=== PATIENT | male | born 1985 | race Caucasian/White ===

== ENCOUNTER 2017-04-18 16:17 | Emergency (ER) | payer OTHER ==
[~2017-04-18] VITALS: Ht 172.7 cm; Wt 68.2 kg
[~2017-04-18 16:17] MED LIST: MOTRIN800 MG PO; NORCO 5/3251 TABLET PO
[2017-04-18 16:36] LABS: ADD MIUA? YES; BILIRUBIN NEGATIVE; BLOOD NEGATIVE; COLOR YELLOW ((YELLOW)); GLUCOSE (STRIP) NEGATIVE; KETONES NEGATIVE; LEUKOCYTES MODERATE; NITRITE NEGATIVE; PROTEIN (STRIP) NEGATIVE; SPECIFIC GRAVITY 1.014 (1.000-1.030); UROBILINOGEN 0.2 MG/DL (0.2-1.0)
[2017-04-18 16:41] LABS: BACTERIA RARE /HPF; EPITHELIAL CELLS RARE /HPF; MUCUS TRACE /LPF; RED BLOOD CELLS 0-5 /HPF (0-5); UCUL ADDED? YES
[2017-04-18 17:21] LABS: HEMATOCRIT 43.5 % (38.0-50.0); MCH 31.5 PG (29.0-34.0); MCHC 33.6 G/DL (30.0-36.0); MEAN PLAT.VOLUME 9.4 uM^3 (9.0-12.4); PLATELET COUNT 325 K/uL (156-360); RBC DIS.WIDTH-CV 12.1 % (11.8-14.6); RBC DIS.WIDTH-SD 42.2 % (39-53); RED BLOOD COUNT 4.63 M/uL (4.00-5.50)
[2017-04-18 17:31] LABS: CHLORIDE 103 mEq/L (99-109); POTASSIUM 4.2 mEq/L (3.7-5.4); SODIUM 139 mEq/L (136-147)
[2017-04-18 17:33] LABS: GLUCOSE 83 mg/dL (70-99)
[2017-04-18 17:34] LABS: ANION GAP 14 MEQ/L (2-14)
[2017-04-18 17:35] LABS: TOTAL BILIRUBIN 0.4 mg/dL (0.0-1.0)
[2017-04-18 17:37] LABS: ALKALINE PHOSPHATASE 81 IU/L (3-129); GFR ESTIMATE (CALCULATED) > 59 mL/min/
[2017-04-18 17:38] LABS: DIRECT BILIRUBIN 0.1 mg/dL (0.0-0.3); UREA NITROGEN (BUN) 13 mg/dL (9-23)
[2017-04-18 17:40] LABS: LIPASE 30 U/L (1.0-51.0)
[2017-04-18 21:30] VITALS: BP 93/44
[2017-04-18] MEDS ORDERED: ZOFRAN ODT4 MG PO (22:29)
== END 2017-04-18 23:09 | disposition home or self-care (01) ==
LOC: EME 16:17
DX: K80.20 Calculus of gallbladder without cholecystitis without obstruction (principal); F11.20 Opioid dependence, uncomplicated; B19.20 Unspecified viral hepatitis C without hepatic coma; F17.200 Nicotine dependence, unspecified, uncomplicated; Z90.49 Acquired absence of other specified parts of digestive tract
CPT/HCPCS: 74177; 76705; 80053; 81003; 82248; 83690; 85027; 87086; 99281; 99285; J2405; J7030